=== PATIENT | male | born 1980 | race Caucasian/White ===

== ENCOUNTER 2025-04-03 12:31 | Emergency (ER) | payer MEDICAID, OTHER ==
[~2025-04-03] VITALS: Ht 200.7 cm; Wt 112.2 kg
[2025-04-03 12:52] VITALS: TEMP 98.3
[2025-04-03 13:08] LABS: LEUKOCYTE ESTERASE ,URINE NEGATIVE (Neg); NITRITES, URINE NEGATIVE (Neg); OCCULT BLOOD,URINE NEGATIVE (Neg)
[2025-04-03 13:14] LABS: UA COLLECTION TYPE CLN CATCH MIDSTREAM
[2025-04-03 13:41] LABS: MEAN PLATELET VOLUME 8.3 FL (7.4-10.4); RED CELL DISTRIBUTION WIDTH 17.6 % (11.5-14.5)
[2025-04-03 13:59] LABS: CREATININE 1.13 MG/DL (0.60-1.10); TOTAL CARBON DIOXIDE 29.7 MMOL/L (24-32); eCRCL 113 ML/MIN; eGFR 71 ML/MIN
[2025-04-03] MEDS: morphine 4 MG/ML inj SYRINge IV ONE (15:47)
--- NOTE | 2025-04-03 16:01 | Physician Documentation ---
History of Present Illness Chief Complaint: Abdominal Pain Stated Complaint: ABD PAIN Time Seen by MD: 14:39 Primary Medical Doctor: nata Source: patient Mode of Arrival: POV Exam Limitations: no limitations HPI Patient presents with chief complaint of abdominal pain. Abdominal pain has been present for two days. Started with epigastric pain and vomiting. Then he noted chest pain that felt like anxiety in the chest. Yesterday he noted a um bilical "bump". Was concerned for hernia. This morning he had diarrhea. Denies fevers or chills. No blood in stool or vomit. Prior to this incident he was at a [employer] tour ([place] Was drinking alcohol heavily and using cocaine. Medication Reconciliation Allergies: Coded Allergies: amoxicillin (Verified Allergy, Unknown, 04/03/25) Scheduled Chlordiazepoxide Hcl (Librium), 25 MG PO DIRECTED Past Medical History Past Medical History: No Pertinent History Alcohol Use: Occasionally Drug Use: none Lives with: Spouse Lives In: Home Occupation: employed Review of Systems Constitutional: Denies: chills, fever Eyes: Reports: no symptoms reported ENT: Reports: no symptoms reported Respiratory: Reports: no symptoms reported Cardiovascular: Reports: chest pain; Denies: left arm pain, diaphoresis, lightheadedness, syncope, edema, palpitations Gastrointestinal: Reports: see HPI, abdominal pain, nausea, vomiting, diarrhea; Denies: constipated, melena, hematemesis, hematochezia, rectal pain, poor appetite, poor fluid intake Genitourinary: Denies: burning, discharge, dysuria, frequency Neurological: Reports: no symptoms reported Musculoskeletal: Reports: no symptoms reported Integumentary: Reports: no symptoms reported Allergic/Immunologic: Reports: no symptoms reported Hematologic/Lymphatic: Reports: no symptoms reported Endocrine: Reports: no symptoms reported Psychiatric: Reports: no symptoms reported Physical Exam Vital Signs: Temperature: 98.3, Source: Oral, Heart Rate: 77, Respiratory Rate: 18, BP: 150/84, Pulse Oximetry: 100, Weight: 112.200 Oxygen Flow Rate: 0 Pulse Oximetry Reflects: adequate oxygenation Physical Exam General: Awake, alert, oriented. No apparent distress Respiratory: Lungs are clear to auscultation bilaterally. No respiratory distress. Chest: Normal shape and size. No accessory muscle use. And with palpation over the chest wall. Cardiovascular: Regular rate and rhythm. S1-S2. No murmur, gallop, rub. Gastrointestinal: There is generalized abdominal tenderness to palpation especially in the right upper quadrant and epigastric area. No rebound tenderness. Extremities: No lower extremity edema, cyanosis or clubbing. Neurologic: Alert and oriented x4. Nonfocal Psychiatric: Normal mood and affect. Skin: Normal color. Warm and dry. Progress Progress Note 1556: Back from CT scan. Nursing gave ordered morphine. Patient complaining of itching at the IV site after morphine administration. Given IV Benadryl. 1647: Patient continues to have some epigastric pain in his concerned for the pain radiating up his chest. He admits to drinking alcohol daily. His last drink was two days ago. Usually drinks of 15 pack of light beer plus shots of liquor daily. Results/Orders Results/Orders Orders - OUMAR MENDEZ SPINDLE [employer]ANDER Ct Abdomen Pelvis (04/03/25 14:52) Diphenhydramine Inj (Benadryl Inj.) (04/03/25 15:55) Completed Orders - OUMAR MENDEZ [employer] Normal Saline 1000ml (0.9% Sodium Chlori (04/03/25 14:55) Morphine 4mg/Ml Inj. (Morphine Inj.) (04/03/25 14:55) Ct Abdomen Pelvis (04/03/25 14:52) Medications Received in ER Medications (Trade) Dose Ordered Sig/Joan Route PRN Reason Start Time Stop Time Status Last Admin Dose Admin (morphine inj.) 4 mg ONCE ONCE IV 04/03/25 14:55 04/03/25 15:05 DC 04/03/25 15:47 4 MG Vital Signs 04/03/25 04/03/25 04/03/25 12:52 13:52 15:47 Temp 98.3 Pulse 77 Resp 18 18 B/P (MAP) 150/84 Pulse Ox 100 O2 Flow Rate 0 Laboratory Tests Test 04/03/25 12:56 04/03/25 13:34 Urine Specimen Description Cln catch midstream Urine Color Yellow Urine Clarity Clear Urine pH 6.0 Urine Specific [place] 1.025 Urine Protein Negative Urine Glucose (UA) Negative Urine Ketones Negative Urine Occult Blood Negative Urine Nitrite Negative Urine Bilirubin Negative Urine Urobilinogen 0.2 Urine Leukocyte Esterase Negative Urine Culture Indicated Not ind Volume Urine Centrifuged 10 ml Urine Comment White Blood Count 8.3 Red Blood Count 5.03 Hemoglobin 12.5 L Hematocrit 38.3 L Mean Corpuscular Volume 76.1 L Mean Corpuscular Hemoglobin 24.9 L Mean Corpuscular Hemoglobin Concent 32.7 L Red Cell Distribution Width 17.6 H Platelet Count 284 Mean Platelet Volume 8.3 Neutrophils (%) (Auto) 69.6 Lymphocytes (%) (Auto) 19.1 L Monocytes (%) (Auto) 7.1 Eosinophils (%) (Auto) 3.5 Basophils (%) (Auto) 0.7 Neutrophils # (Auto) 5.8 Lymphocytes # (Auto) 1.6 Monocytes # (Auto) 0.6 Eosinophils # (Auto) 0.3 Basophils # (Auto) 0.1 CBC Comment Sodium Level 138 Potassium Level 3.9 Chloride Level 101 Carbon Dioxide Level 29.7 Anion Gap 7 L Blood Urea Nitrogen 11 Creatinine 1.13 H Estimated GFR/1.73 m2 71 BUN/Creatinine Ratio 9.7 L Glucose Level 134 H Calcium Level 8.8 Total Bilirubin 0.4 Aspartate Amino Transf (AST/SGOT) 27 Alanine Aminotransferase (ALT/SGPT) 37 Alkaline Phosphatase 73 Total Protein 8.0 Albumin 3.7 Globulin 4.3 Albumin/Globulin Ratio 0.9 L Lipase 42 Chemistry Comments EKG/XRAY/CT/US/VASC/MRI EKG : Intepreting Monitor?: Yes Indication: abdominal Pain, chest pain EKG: NSR EKG Blocks: none [place]: normal Hypertrophy: none Additional Comment EKG shows sinus bradycardia rate of 52. Early repolarization pattern. No acute ST changes. CT : Interpreted By: radiologist CT: abdomen/pelvis With Contrast?: No Impression [place] [id number] CAT SCAN Patient: SHARYN PRITCHARD Medical Record: [id number] : 1980, Age: 44 Sex: Male Location: ER Patient Status: REG ER Service Date/Time: 04/03/25 1452 Ordering Physician: OUMAR MENDEZ NP Exam: CT ABDOMEN PELVIS CLINICAL INFORMATION: Abdominal pain. TECHNIQUE: Axial CT images of the abdomen and pelvis were obtained without IV contrast. Coronal and sagittal reformatted images were obtained, reviewed, and stored. Evaluation of the parenchymal organs is limited without IV contrast. Evaluation of the bowel and mesentery is limited without oral contrast. All CT scans at this medical facility are performed using dose modulation techniques as appropriate to a performed exam including the following: Automated exposure control was utilized; adjustment of the MA and/or KV according to patient size; and use of iterative reconstruction technique. CTDIvol = 28.82 mGy DLP = 1601.47 mGy-cm COMPARISON: None FINDINGS: Lung bases: Lung bases are clear. Liver: Grossly unremarkable in its noncontrast enhanced appearance. No abnormal density or focal lesion identified. Biliary: Partially contracted gallbladder. No calcified gallstones visualized. Spleen: Unremarkable. Pancreas: Grossly unremarkable in its noncontrast enhanced appearance. Adrenal glands: 1 cm right adrenal nodule, most consistent with a benign lipid rich adenoma based on its density. Kidneys: No hydronephrosis. No renal or ureteral calculi. Aorta/Vascular: No aneurysm or significant calcification. Lymph nodes: No mass or lymphadenopathy. Bowel/mesentery: Nonspecific nondilated fluid-filled small bowel loops. No small bowel obstruction. Appendix is visualized and appears unremarkable. No free air or free fluid. Pelvic organs: Grossly unremarkable. Bladder: Unremarkable. No mass. Abdominal wall: Very small fat containing umbilical hernia. Very small fat containing indirect left inguinal hernia extending slightly into the left inguinal canal. Bones: No acute fracture or suspicious intraosseous lesion. IMPRESSION: 1. Nonspecific nondilated fluid-filled small bowel loops. Findings may be seen with ileus or enteritis in the appropriate clinical setting. No small bowel obstruction. 2. Small right adrenal nodule, most consistent with a benign lipid rich adenoma. 3. Partially contracted gallbladder with no calcified gallstones visualized. 4. Additional findings as described above. Electronically Signed by:KHRIS WEBB DO Date & Time: 04/03/25 1827 Dictated by: KHRIS WEBB DO Dictation date and time: 04/03/25 3572 Primary Care Provider: NO PRIMARY CARE PROVIDER cc: OUMAR MENDEZ [employer]ER ~ Medical Decision Making Findings Patient with past history of excessive alcohol use drinking over a 12 pack of beer plus shots everyday presents secondary to abdominal pain. He had a two day history of abdominal pain. He had an episode of vomiting on the 1st day that resolved spontaneously. Laboratory evaluation is unremarkable. He was concerned for possible abdominal hernia. There is no significant abdominal hernia on exam. Underwent a CT of the abdomen/pelvis with no acute intra- abdominal processes. Pain is in the epigastric region and generalized. Complaining of chest pain that is worse with palpation especially in the epigastric region. EKG did not show any acute ST-T changes. There is no clinical suspicion for ACS at this point given his history and physical exam/description of the pain. His pain is likely epigastric. On Re exam he stated he had a history of GERD and takes omeprazole. He also appreciated partying and drinking alcohol as well as using cocaine approximately four days ago. He denied having any blood in the stool or vomit. Pain improved in ER with morphine. He then developed some itching. He was treated for this with Benadryl. Reported improvement in this symptom. No current evidence of acute emergency at this time. Has not had any alcohol for the past two days. States he drinks excessively and wishes to stop. Risks, benefits of Librium use were reviewed. He was given a prescription. Encouraged to follow up with primary care provider. This time he is afebrile and well-appearing. Warning signs and symptoms were reviewed. He is discharged home in stable condition. Differential Dx:Considerations: Include: Angina/CA, Aortic dissection, Appendicitis, Cholelithasis, Diverticular disease, Esophageal rupture, Esophagitis, Gastritis/PUD, GI hemorrhage, Hernia, Inflammatory BD, Ischemic bowel Departure Time of Disposition: 16:38 Disposition: 01 HOME / SELF CARE / HOMELESS Impression: Primary Impression: Abdominal pain Qualified Codes: R10.84 - Generalized abdominal pain Additional Impressions: Alcohol use Nonspecific chest pain Discharge Instructions: Abdominal Pain (Nonspecific) Additional Instructions: Her laboratory evaluation did not show any acute emergency. Your CT scan of your abdomen was also without acute abdominal emergencies. Your chest pain is more consistent with musculoskeletal nature. Recommend that you stay well hydrated. Avoid alcohol and cocaine use. Return for new or worsening symptoms. Referrals: NO PRIMARY CARE PROVIDER (PCP) Prescriptions Chlordiazepoxide Hcl (Librium) 25 Mg Capsule 25 MG PO DIRECTED for Alcohol withdrawal for 12 Days, #32 CAP 0 Refills Take two tablets by mouth 3 times a day for two days. Then take two tablets by mouth twice daily for two days. Then take one tablet by mouth 3 times a day for two days. Followed by one tablet by mouth twice daily for two days. Then take one tablet by mouth daily for two days. Prov: OUMAR MENDEZ NP 04/03/25 Education Educated: Patient Educated regarding: diagnosis, treatment, need for follow up Signature Scribe Signature: No scribe Attestation: The note accurately reflects work and decisions made by me.Oumar Mendez - RU 04/03/25 18:30 This note was created with the assistance of voice recognition software whereby errors in grammar, syntax, and/or spelling may have occurred despite active proofreading efforts by the author. Please do not hesitate to contact the provider for clarification or for questions regarding the content of this document. OUMAR MENDEZ NP Apr 03, 2025 16:01
[2025-04-03] MEDS: normal saline 1000ML IV soln IVB ONE (16:03)
--- NOTE | 2025-04-03 16:09 | ELECTROCARDIOGRAPH REPORT ---
[facility] Test Date: 2025-04-03 Test Time: 16:06:52 Pat Name: SHARYN PRITCHARD Department: [facility]-ER Patient ID: [id number] Room: Gender: M Metalsmith: : 1980 Requested By: OUMAR KING Order Number: [id number] Reading MD: Measurements Intervals [place] Rate: 52 P: 0 ID: [id number] QRS: 82 QRSD: 89 T: 64 QT: 442 QTc: 411 Interpretive Statements Sinus bradycardia Short ID interval ST elev, probable normal early repol pattern Baseline wander in lead(s) V2 Please click the below link to view image of tracing.
--- NOTE | 2025-04-03 16:09 | RADIOLOGY REPORT ---
CLINICAL INFORMATION: Abdominal pain. TECHNIQUE: Axial CT images of the abdomen and pelvis were obtained without IV contrast. Coronal and sagittal reformatted images were obtained, reviewed, and stored. Evaluation of the parenchymal organs is limited without IV contrast. Evaluation of the bowel and mesentery is limited without oral contrast. All CT scans at this medical facility are performed using dose modulation techniques as appropriate to a performed exam including the following: Automated exposure control was utilized; adjustment of the MA and/or KV according to patient size; and use of iterative reconstruction technique. CTDIvol = 28.82 mGy DLP = 1601.47 mGy-cm COMPARISON: None FINDINGS: Lung bases: Lung bases are clear. Liver: Grossly unremarkable in its noncontrast enhanced appearance. No abnormal density or focal lesion identified. Biliary: Partially contracted gallbladder. No calcified gallstones visualized. Spleen: Unremarkable. Pancreas: Grossly unremarkable in its noncontrast enhanced appearance. Adrenal glands: 1 cm right adrenal nodule, most consistent with a benign lipid rich adenoma based on its density. Kidneys: No hydronephrosis. No renal or ureteral calculi. Aorta/Vascular: No aneurysm or significant calcification. Lymph nodes: No mass or lymphadenopathy. Bowel/mesentery: Nonspecific nondilated fluid-filled small bowel loops. No small bowel obstruction. Appendix is visualized and appears unremarkable. No free air or free fluid. Pelvic organs: Grossly unremarkable. Bladder: Unremarkable. No mass. Abdominal wall: Very small fat containing umbilical hernia. Very small fat containing indirect left inguinal hernia extending slightly into the left inguinal canal. Bones: No acute fracture or suspicious intraosseous lesion. IMPRESSION: 1. Nonspecific nondilated fluid-filled small bowel loops. Findings may be seen with ileus or enteritis in the appropriate clinical setting. No small bowel obstruction. 2. Small right adrenal nodule, most consistent with a benign lipid rich adenoma. 3. Partially contracted gallbladder with no calcified gallstones visualized. 4. Additional findings as described above.
[2025-04-03] MEDS ORDERED: CHLO25CA10 PO (16:56)
[2025-04-03] MEDS: mag hydrox/Alum hydrox/simeth 30ml oral suspension PO ONE (17:27)
[2025-04-03 17:51] VITALS: BP 139/105; PULSE 62; RESP 13; O2SAT 99
== END 2025-04-03 17:52 | disposition home or self-care (01) ==
LOC: ER 12:31
DX: R10.13 Epigastric pain (principal); R07.9 Chest pain, unspecified; F14.90 Cocaine use, unspecified, uncomplicated; F10.90 Alcohol use, unspecified, uncomplicated; Z88.0 Allergy status to penicillin; Y90.9 Presence of alcohol in blood, level not specified
CPT/HCPCS: 36415; 74176; 80053; 81003; 83690; 85025; 93005; 96361; 96374; 96375; 99285; J1200; J2270; J7030